=== PATIENT | female | born 1955 | race Caucasian/White ===

== ENCOUNTER → 2018-01-01 | Outpatient (CLI) | payer BC ==
--- NOTE | 2018-01-01 17:36 | CT ---
EXAMINATION TYPE: CT abdomen pelvis wo/w con DATE OF EXAM: 01/01/2018 COMPARISON: 11/30/2015 HISTORY: Patient complains of severe intermittent generalized abdoimnal/pelvic pain. CT DLP: 2066 mGycm Automated exposure control for dose reduction was used. TECHNIQUE: Helical acquisition of images was performed from the lung bases through the pelvis. CONTRAST: Performed with Oral Contrast and with IV Contrast, patient injected with 100 mL of Isovue 300. FINDINGS: Lung bases are clear. There is no pleural effusion. Heart size is normal. Gallbladder appears normal. Spleen appears normal. There is no pancreatic mass. There is no adrenal mass. 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 There is no hydronephr osis. Ureters are not dilated. There are a few sigmoid diverticula. There is no evidence of diverticulitis. Bladder distends smoothl y. There is no pelvic mass. Bony structures appear intact. Uterus is anteverted. There is no free flu id in the pelvis. There is no sign of free air. Appendix is not seen. There is no sign of appendiciti s. There are 1 cm hypodensities in the posterior right lobe of the liver consistent with cysts. IMPRESSION: SMALL HEPATIC CYSTS ARE UNCHANGED COMPARED TO OLD EXAM. NO SIGN OF ACUTE ABDOMEN AND PELVIS. MILD SIG MOID DIVERTICULOSIS WITHOUT EVIDENCE OF DIVERTICULITIS. I DO NOT SEE A CAUSE FOR ABDOMINAL PAIN.
== END | disposition home or self-care (01) ==
LOC: RADCTMAIN 15:17
PROVIDERS: ATTEND Family Medicine
DX: K76.89 Other specified diseases of liver (principal); K57.30 Diverticulosis of large intestine without perforation or abscess without bleeding
CPT/HCPCS: 74178; Q9967

== ENCOUNTER → 2018-01-20 | Outpatient (CLI) | payer BC ==
[2018-01-20 10:32] LABS: Basophils # (A) 0.1 k/uL (0-0.2); Basophils % (A) 1 %; Eosinophils # (A) 0.1 k/uL (0-0.7); Eosinophils % (A) 3 %; HCT 43.4 % (34.0-46.0); HGB 13.8 gm/dL (11.4-16.0); Lymphocytes # (A) 1.1 k/uL (1.0-4.8); Lymphocytes % (A) 24 %; MCHC 31.9 g/dL (31.0-37.0); Mean Platelet Volume 7.1; Monocytes # (A) 0.3 k/uL (0-1.0); Monocytes % (A) 6 %; Neutrophils # (A) 2.9 k/uL (1.3-7.7); Neutrophils % (A) 63 %; Platelet Count 223 k/uL (150-450); RBC 4.62 m/uL (3.80-5.40); RDW 12.9 % (11.5-15.5); WBC 4.6 k/uL (3.8-10.6)
[2018-01-20 10:45] LABS: ALT 34 U/L (9-52); AST 28 U/L (14-36); Albumin 4.1 g/dL (3.5-5.0); Alkaline Phosphatase 61 U/L (38-126); Anion Gap 3 mmol/L; Blood Urea Nitrogen 16 mg/dL (7-17); Calcium 9.5 mg/dL (8.4-10.2); Carbon Dioxide 28 mmol/L (22-30); Chloride 109 mmol/L (98-107); Cholesterol 208 mg/dL (<200); Glucose 92 mg/dL (74-99); HDL Cholesterol 82 mg/dL (40-60); LDL Cholesterol,Calculated 108 mg/dL (0-99); Potassium 5.2 mmol/L (3.5-5.1); Sodium 140 mmol/L (137-145); Total Bilirubin 0.9 mg/dL (0.2-1.3); Total Protein 6.6 g/dL (6.3-8.2); Triglycerides 92 mg/dL (<150)
[2018-01-20 12:13] LABS: T4, Free (Free Thyroxine) 1.02 ng/dL (0.78-2.19)
[2018-01-20 16:50] LABS: Gliadin AB IgA, Unit <0.2 U/mL
[2018-01-20 16:55] LABS: Hepatitis C IgG Antibody Non-Reactive (Non-Reactive)
== END | disposition home or self-care (01) ==
LOC: LABWHC1 09:56
PROVIDERS: ATTEND Family Medicine
DX: Z00.00 Encounter for general adult medical examination without abnormal findings (principal); R53.83 Other fatigue; Z11.59 Encounter for screening for other viral diseases; Z91.018 Allergy to other foods
CPT/HCPCS: 36415; 80053; 80061; 82607; 82785; 83516; 84439; 84443; 84481; 85025; 86803

== ENCOUNTER → 2019-05-26 | Outpatient (CLI) | payer BC ==
[2019-05-26 11:17] LABS: Basophils # (A) 0.1 k/uL (0-0.2); Basophils % (A) 1 %; Eosinophils # (A) 0.1 k/uL (0-0.7); Eosinophils % (A) 2 %; HCT 46.3 % (34.0-46.0); HGB 14.7 gm/dL (11.4-16.0); Lymphocytes # (A) 1.6 k/uL (1.0-4.8); Lymphocytes % (A) 26 %; MCH 30.3 pg (25.0-35.0); MCHC 31.8 g/dL (31.0-37.0); MCV 95.5 fL (80.0-100.0); Mean Platelet Volume 7.3; Monocytes # (A) 0.4 k/uL (0-1.0); Monocytes % (A) 7 %; Neutrophils # (A) 3.9 k/uL (1.3-7.7); Neutrophils % (A) 62 %; Platelet Count 257 k/uL (150-450); RBC 4.85 m/uL (3.80-5.40); RDW 12.5 % (11.5-15.5); WBC 6.3 k/uL (3.8-10.6)
[2019-05-26 20:57] LABS: Albumin 4.4 g/dL (3.80-4.90); Albumin/Globulin Ratio 2.32 (1.60-3.17); Anion Gap 9.2 mmol/L (4.00-12.00); BUN/Creat Ratio 18.75 Ratio (12.00-20.00); Calcium 9.4 mg/dL (8.7-10.3); Carbon Dioxide 24.8 mmol/L (21.6-31.8); Globulin 1.9 g/dL (1.6-3.3); Non-African American GFR(CKD) 76.8 (60.0-200.0); Potassium 4.5 mmol/L (3.5-5.5); Total Bilirubin 1.1 mg/dL (0.3-1.2); Total Protein 6.3 g/dL (6.2-8.2)
[2019-05-26 21:09] LABS: Hemoglobin A1C 5.3 % (4.0-6.0)
== END | disposition home or self-care (01) ==
LOC: LABWHC1 10:39
PROVIDERS: ATTEND Family Medicine
DX: Z00.01 Encounter for general adult medical examination with abnormal findings (principal); Z13.220 Encounter for screening for lipoid disorders; Z13.1 Encounter for screening for diabetes mellitus
CPT/HCPCS: 36415; 80053; 83036; 84443; 85025

== ENCOUNTER → 2019-07-08 | Outpatient (CLI) | payer BC ==
--- NOTE | 2019-07-10 09:27 | MM ---
Reason for exam: screening (asymptomatic). Last mammogram was performed 5 years and 1 month ago. History: Patient is postmenopausal and had first child at age 31. Family history of breast cancer in mother. Took estrogen for 3 months. Took progesterone for 3 months. Physical Findings: A clinical breast exam by your physician is recommended on an annual basis and results should be correlated with mammographic findings. MG 3D Screening Mammo W/Cad Bilateral CC and MLO view(s) were taken. Prior study comparison: June 10, 2014, mammogram, performed at [facility]. There are scattered fibroglandular densities. Lucent centered calcifications grouped in the anterior left breast are stable and benign. No significant changes when compared with prior studies. ASSESSMENT: Negative, BI-RAD 1 RECOMMENDATION: Routine screening mammogram of both breasts in 1 year.
== END | disposition home or self-care (01) ==
LOC: RADMAMWWP 10:46
PROVIDERS: ATTEND Family Medicine
DX: Z12.31 Encounter for screening mammogram for malignant neoplasm of breast (principal)
CPT/HCPCS: 77063; 77067

== ENCOUNTER → 2021-07-19 | Outpatient (CLI) | payer BC, MEDICARE ==
--- NOTE | 2021-07-21 09:22 | MM ---
Reason for exam: screening (asymptomatic). Last mammogram was performed 2 years ago. History: Patient is postmenopausal and had first child at age 31. Family history of breast cancer in mother. Took estrogen for 3 months. Took progesterone for 3 months. Physical Findings: A clinical breast exam by your physician is recommended on an annual basis and results should be correlated with mammographic findings. MG 3D Screening Mammo W/Cad Bilateral CC and MLO view(s) were taken. XCCL view(s) were taken of the right breast. Prior study comparison: July 08, 2019, bilateral MG 3d screening mammo w/cad. June 10, 2014, mammogram, performed at [facility]. There are scattered fibroglandular densities. Finding: There are stable typically benign course grouped/clustered calcifications in the left breast. No significant changes in finding since July 08, 2019 and June 10, 2014. ASSESSMENT: Benign, BI-RAD 2 RECOMMENDATION: Routine screening mammogram of both breasts in 1 year.
== END | disposition home or self-care (01) ==
LOC: RADMAMWWP 15:45
PROVIDERS: ATTEND Family Medicine
DX: Z12.31 Encounter for screening mammogram for malignant neoplasm of breast (principal); Z80.3 Family history of malignant neoplasm of breast; Z78.0 Asymptomatic menopausal state
CPT/HCPCS: 77063; 77067

== ENCOUNTER → 2022-12-18 | Outpatient (CLI) | payer MEDICARE ==
--- NOTE | 2022-12-19 08:42 | MM ---
Reason for Exam: Screening (asymptomatic). Last mammogram was performed 1 year(s) and 5 month(s) ago. Patient History: Menarche at age 11. First Full-Term at age 31. Late child-bearing (after 30). Postmenopausal. Estrogen for 3 months. Progesterone for 3 months. Mother had breast cancer. Risk Values: Alma Rosa 5 year model risk: 3.5%. NCI Lifetime model risk: 10.5%. Prior Study Comparison: 06/10/2014 Screening Mammogram, [facility]. 07/08/2019 Bilateral Screening Mammogram, [facility]. 07/19/2021 Bilateral Screening Mammogram, [facility]. Tissue Density: The breast tissue is heterogeneously dense. This may lower the sensitivity of mammography. Findings: Analyzed By CAD. There is no suspicious group of microcalcifications or new suspicious mass in either breast. Overall Assessment: Negative, BI-RAD 1 Management: Screening Mammogram of both breasts in [address] [facility] will attempt to contact patient to return for supplemental views and ultrasound if indicated. Patient should continue monthly self-breast exams. A clinical breast exam by your physician is recommended on an annual basis. This exam should not preclude additional follow-up of suspicious palpable abnormalities. Note on Alma Rosa scores and lifetime risk: 1. A Alma Rosa score greater than 3% is considered moderate risk. If this is the case, consider specialist referral to assess eligibility for a risk reducing agent. 2. If overall lifetime risk for the development of breast cancer is 20% or higher, the patient may qualify for future screening with alternating mammogram and breast MRI. Electronically signed and approved by: Prince Sue DO
== END | disposition home or self-care (01) ==
LOC: RADMAMWWP 15:54
PROVIDERS: ATTEND Family Medicine
DX: Z12.31 Encounter for screening mammogram for malignant neoplasm of breast (principal); Z78.0 Asymptomatic menopausal state; Z80.3 Family history of malignant neoplasm of breast
CPT/HCPCS: 77063; 77067

== ENCOUNTER → 2022-12-19 | Outpatient (CLI) | payer MEDICARE ==
[2022-12-19 16:09] LABS: HCT 40.3 % (37.2-46.3); HGB 12.5 d/dL (12.0-15.0); MCH 29.1 pg (27.0-32.0); MCV 93.9 FL (80.0-97.0); Mean Platelet Volume 10.6 FL (9.5-12.2); NRBC Per 100 WBC 0 X 10*3/uL (0.00-0.01); Platelet Count 197 X 10*3/uL (140-440); RBC 4.29 X 10*6/uL (4.10-5.20); RDW 13.5 % (11.5-14.5); WBC 11.87 X 10*3/uL (4.50-10.00)
[2022-12-19 17:02] LABS: ALT 96 U/L (8-44); AST 87 U/L (13-35); Albumin 3.6 d/dL (3.8-4.9); Alkaline Phosphatase 135 U/L (41-126); BUN/Creat Ratio 19.25 Ratio (12.00-20.00); Blood Urea Nitrogen 15.4 mg/dL (9.0-27.0); Calcium 9.1 mg/dL (8.7-10.3); Carbon Dioxide 25.9 mmol/L (21.6-31.8); Chloride 105 mmol/L (96-109); Globulin 2.4 d/dL (1.6-3.3); Glucose 93 mg/dL (70-110); LDL Cholesterol,Calculated 89.6 mg/dL (0.0-131.0); Potassium 4.2 mmol/L (3.5-5.5); Sodium 141 mmol/L (135-145); Total Bilirubin 0.5 mg/dL (0.3-1.2)
[2022-12-19 18:30] LABS: Lymphocytes # (M) 5.82 X 10*3/uL (0.90-5.00)
[2022-12-19 19:00] LABS: Basophils # (M) 0.12 X 10*3/uL (0.00-0.10); Eosinophils # (M) 0.36 X 10*3/uL (0.04-0.35); Monocytes # (M) 1.07 X 10*3/uL (0.20-1.00); Neutrophils # (M) 4.51 X 10*3/uL (1.80-7.70); Neutrophils % (M) 38 %
== END | disposition home or self-care (01) ==
LOC: LABWHC1 11:31
PROVIDERS: ATTEND Family Medicine
DX: Z00.01 Encounter for general adult medical examination with abnormal findings (principal); Z13.220 Encounter for screening for lipoid disorders; Z13.1 Encounter for screening for diabetes mellitus; Z13.29 Encounter for screening for other suspected endocrine disorder
CPT/HCPCS: 36415; 80053; 80061; 83036; 84443; 85025

== ENCOUNTER → 2023-02-06 | Outpatient (CLI) | payer MEDICARE ==
--- NOTE | 2023-02-06 15:48 | USB ---
Reason for Exam: Additional evaluation requested from prior study. Patient History: Menarche at age 11. First Full-Term at age 31. Late child-bearing (after 30). Postmenopausal. Estrogen for 3 months. Progesterone for 3 months. Mother had breast cancer. Risk Values: Alma Rosa 5 year model risk: 3.5%. NCI Lifetime model risk: 10.5%. Technique: Method: Whole Breast Handheld. Prior Study Comparison: 07/08/2019 Bilateral Screening Mammogram, [facility]. 07/19/2021 Bilateral Screening Mammogram, [facility]. 12/18/2022 Bilateral MG 3D screening mammo w/cad, [facility]. Findings: The whole breast of both breasts, the axilla of both breasts and the retroareolar of both breasts were scanned. No solid or cystic masses are identified.. Overall Assessment: Benign, BI-RAD 2 Management: Screening Mammogram of both breasts in 10 months. A clinical breast exam by your physician is recommended on an annual basis and results should be correlated with mammographic findings. This exam should not preclude additional follow-up of suspicious palpable abnormalities. Results were given to the patient verbally at the time of exam. Electronically signed and approved by: Volodymyr Langley D.O. Radiologis
== END | disposition home or self-care (01) ==
LOC: RADUSWWP 14:00
PROVIDERS: ATTEND Family Medicine
DX: R92.2 Inconclusive mammogram (principal); Z78.0 Asymptomatic menopausal state; Z80.3 Family history of malignant neoplasm of breast

== ENCOUNTER → 2023-02-19 | Outpatient (CLI) | payer MEDICARE ==
--- NOTE | 2023-02-19 07:50 | US ---
EXAMINATION TYPE: US liver DATE OF EXAM: 02/19/2023 COMPARISON: 01/01/2018 CLINICAL INDICATION: Female, 67 years old with history of R74.01 ELEVATION OF LEVELS OF LIVER TRANSAM INASE L; elevated LFTs TECHNIQUE: Multiple sonographic images of the right upper quadrant are obtained. 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 Two approaches used. H epatic cysts from prior CT not visualized, one hyperechoic area noted in rt lobe: 1.3x1.0x1.2cm Gallbladder: wnl, prominent size Evidence for sonographic Donovan's sign: No CBD: wnl Right Kidney: wnl, horseshoe kidney, inferior pole slightly obscured by bowel exam slightly limited by bowel gas, and rib shadowing IMPRESSION: 1. Horseshoe kidney. 2. Probable hemangioma posterior segment right hepatic lobe.
== END | disposition home or self-care (01) ==
LOC: RADUSWWP 06:47
PROVIDERS: ATTEND Family Medicine
DX: Q63.1 Lobulated, fused and horseshoe kidney (principal); R74.01 Elevation of levels of liver transaminase levels
CPT/HCPCS: 76705

== ENCOUNTER → 2023-02-21 | Outpatient (CLI) | payer MEDICARE ==
[2023-02-21 13:23] LABS: Basophils # (A) 0.05 X 10*3/uL (0.00-0.10); Basophils % (A) 1.1 %; Eosinophils % (A) 2.1 %; HCT 41.8 % (37.2-46.3); HGB 13.5 d/dL (12.0-15.0); Lymphocytes # (A) 2.21 X 10*3/uL (0.90-5.00); Lymphocytes % (A) 46.7 %; MCH 30.8 pg (27.0-32.0); MCHC 32.3 d/dL (32.0-37.0); MCV 95.2 FL (80.0-97.0); Mean Platelet Volume 10.2 FL (9.5-12.2); Monocytes # (A) 0.48 X 10*3/uL (0.20-1.00); Monocytes % (A) 10.1 %; NRBC Per 100 WBC 0 X 10*3/uL (0.00-0.01); Neutrophils # (A) 1.88 X 10*3/uL (1.80-7.70); Neutrophils % (A) 39.8 %; Platelet Count 241 X 10*3/uL (140-440); RBC 4.39 X 10*6/uL (4.10-5.20); RDW 13.8 % (11.5-14.5); WBC 4.73 X 10*3/uL (4.50-10.00)
[2023-02-21 13:34] LABS: ALT 33 U/L (8-44); AST 30 U/L (13-35); Albumin 4.4 d/dL (3.8-4.9); Alkaline Phosphatase 78 U/L (41-126); Amylase 31 U/L (23-121); BUN/Creat Ratio 19.14 Ratio (12.00-20.00); Blood Urea Nitrogen 13.4 mg/dL (9.0-27.0); Calcium 9.8 mg/dL (8.7-10.3); Carbon Dioxide 27.3 mmol/L (21.6-31.8); Chloride 105 mmol/L (96-109); Globulin 2.1 d/dL (1.6-3.3); Glucose 86 mg/dL (70-110); Lipase 20 U/L (14-63); Potassium 5.1 mmol/L (3.5-5.5); Sodium 140 mmol/L (135-145); Total Bilirubin 0.8 mg/dL (0.3-1.2); Total Protein 6.5 d/dL (6.2-8.2)
[2023-02-21 13:44] LABS: Hepatitis A Antibody IgM Nonreactive; Hepatitis B Core IgM Nonreactive; Hepatitis B Surface Antigen Nonreactive; Hepatitis C IgG Antibody Nonreactive
== END | disposition home or self-care (01) ==
LOC: LABWHC1 08:54
PROVIDERS: ATTEND Family Medicine
DX: R74.01 Elevation of levels of liver transaminase levels (principal)
CPT/HCPCS: 36415; 80053; 80074; 82150; 83690; 85025

== ENCOUNTER → 2024-03-06 | Outpatient (CLI) | payer MEDICARE ==
--- NOTE | 2024-03-10 11:00 | MM ---
Reason for Exam: Screening (asymptomatic). Last mammogram was performed 1 year(s) and 3 month(s) ago. Patient History: Menarche at age 11. First Full-Term at age 31. Late child-bearing (after 30). Postmenopausal. Estrogen for 3 months. Progesterone for 3 months. Mother had breast cancer. Risk Values: Alma Rosa 5 year model risk: 3.5%. NCI Lifetime model risk: 10.0%. Prior Study Comparison: 07/08/2019 Bilateral Screening Mammogram, [facility]. 07/19/2021 Bilateral Screening Mammogram, [facility]. 12/18/2022 Bilateral MG 3D screening mammo w/cad, [facility]. Tissue Density: There are scattered areas of fibroglandular density. Findings: Analyzed By CAD. Right breast: There is no suspicious group of microcalcifications or new suspicious mass. Left breast: There is no suspicious group of microcalcifications or new suspicious mass. Overall Assessment: Negative, BI-RAD 1 Management: Screening Mammogram of both breasts in [address] [facility] will attempt to contact patient to return for supplemental views and ultrasound if indicated. Patient should continue monthly self-breast exams. A clinical breast exam by your physician is recommended on an annual basis. This exam should not preclude additional follow-up of suspicious palpable abnormalities. Note on Alma Rosa scores and lifetime risk: 1. A Alma Rosa score greater than 3% is considered moderate risk. If this is the case, consider specialist referral to assess eligibility for a risk reducing agent. 2. If overall lifetime risk for the development of breast cancer is 20% or higher, the patient may qualify for future screening with alternating mammogram and breast MRI. [facility], , 03/10/2024 10:57 AM. Electronically signed and approved by: Prince Sue DO
== END | disposition home or self-care (01) ==
LOC: RADMAMWWP 14:11
PROVIDERS: ATTEND Family Medicine
CPT/HCPCS: 77063; 77067

== ENCOUNTER → 2024-03-13 | Outpatient (CLI) | payer MEDICARE ==
[2024-03-13 15:02] LABS: Basophils # (A) 0.04 X 10*3/uL (0.00-0.10); Basophils % (A) 0.7 %; Eosinophils % (A) 1.8 %; HCT 40.4 % (37.2-46.3); Lymphocytes # (A) 2.02 X 10*3/uL (0.90-5.00); Lymphocytes % (A) 35.9 %; MCH 30.8 pg (27.0-32.0); MCHC 32.2 g/dL (32.0-37.0); MCV 95.7 FL (80.0-97.0); Mean Platelet Volume 10.9 FL (9.5-12.2); Monocytes # (A) 0.52 X 10*3/uL (0.20-1.00); Monocytes % (A) 9.2 %; NRBC Per 100 WBC 0 X 10*3/uL (0.00-0.01); Neutrophils # (A) 2.94 X 10*3/uL (1.80-7.70); Neutrophils % (A) 52.2 %; Platelet Count 209 X 10*3/uL (140-440); RBC 4.22 X 10*6/uL (4.10-5.20); RDW 12.8 % (11.5-14.5); WBC 5.63 X 10*3/uL (4.50-10.00)
[2024-03-13 20:15] LABS: ALT 15 U/L (8-44); AST 20 U/L (13-35); Albumin 4.2 g/dL (3.8-4.9); Alkaline Phosphatase 55 U/L (41-126); Blood Urea Nitrogen 13.5 mg/dL (9.0-27.0); Calcium 9.7 mg/dL (8.7-10.3); Carbon Dioxide 25.2 mmol/L (21.6-31.8); Chloride 107 mmol/L (96-109); Chol/HDL Ratio 2.99 Ratio; Globulin 2.1 g/dL (1.6-3.3); Glucose 76 mg/dL (70-110); LDL Cholesterol,Calculated 107.4 mg/dL (0.0-131.0); Potassium 4.5 mmol/L (3.5-5.5); Sodium 142 mmol/L (135-145); Total Bilirubin 0.6 mg/dL (0.3-1.2); Total Protein 6.3 g/dL (6.2-8.2)
== END | disposition home or self-care (01) ==
LOC: LABWHC1 10:21
PROVIDERS: ATTEND Family Medicine
DX: Z00.01 Encounter for general adult medical examination with abnormal findings (principal); Z13.220 Encounter for screening for lipoid disorders; Z13.1 Encounter for screening for diabetes mellitus; Z13.29 Encounter for screening for other suspected endocrine disorder
CPT/HCPCS: 36415; 80053; 80061; 83036; 84443; 85025

== ENCOUNTER → 2024-09-17 | Outpatient (CLI) | payer MEDICARE ==
[2024-09-17 14:26] VITALS: BP 138/71; PULSE 92; RESP 17; TEMP 98.2
--- NOTE | 2024-09-17 15:00 | P.GSCN ---
History of Present Illness Consult date: 09/17/24 Reason for Consult: breast mass Requesting physician: Hakeem Easley History of present illness: Remedios is a 69 year old female with a complaint of a right breast lump in February, and was bulging above the surface. She took antibiotics for two weeks and it was gone. A few months later it recurred, about April it recurred. This occured after the mammogram. She had a bilateral mammogram on 03-06-24 BIRAD 1. She had a bilateral breast ultrasound on 02-06-23 BIRAD 2. At this time she feels a small smooth/palpable in the right breast in the lower inner quadrant area. No other lumps masses or nodules of concern in either breast. She is not complaining of any fever or chills. Caffeine:2 cups/day nicotine: never smoker chocolate: occasional BCP: none hormone: used for several months at menopause Family History: mother: breast cancer at 57 Hormonal History: menarche: 12 , age at : 31, breast fed: yes menopause: 48 Surgical History: tonsillectomy RLQ leaking appendix, exploratory surgery abcess appendix took terminal ileum to hepatic flexure, 22 years ago bowel obstruction Medical History: chronic abdominal pain; migraines back pain rxn airway disease Social History: nicotine: none alcohol: glass red wine at night in the past stopped 3 years ago drugs: none Review of Systems - Constitutional Denies fever, Denies weight loss - EENT Eyes: denies blurred vision Ears: left: tinnitus, deny: decreased hearing Ears, nose, mouth and throat: Denies dysphagia - Breasts bilateral: as per HPI - Cardiovascular Reports shortness of breath, Denies chest pain - Respiratory Reports as per HPI - Gastrointestinal Reports as per HPI - Genitourinary Genitourinary: Denies dysuria, Denies hematuria Menstruation: Reports postmenopausal - Musculoskeletal Musculoskeleta Comment(s): back pain - Integumentary Denies rash, Denies unusual bruising - Neurological Reports headaches, Denies syncope - Psychiatric Reports as per HPI - Endocrine Reports as per HPI - Hematologic/Lymphatic Reports easy bruising, Denies easy bleeding - Allergic/Immunologic Reports as per HPI Surgical - Exam - General no distress - Eyes normal ocular movement - Neck trachea midline - Respiratory normal respiratory effort, clear to auscultation - Cardiovascular Rhythm: regular Heart Sounds: normal: S1, S2 - Abdomen Abdomen: soft, non tender, no guarding, no rigid, no rebound - Integumentary normal turgor - Neurologic no disoriented, no combative - Musculoskeletal normal gait, normal posture - Psychiatric oriented to time, oriented to person, oriented to place, speech is normal, memory intact Breast Exam: BRA: 38C Inspection: Bilateral grade 2 ptosis Palpation: Right breast: Multi positional exam fibrocystic changes, in the lower inner quadrant there is a probable sebaceous cyst it is approximately 8 mm in size Right axilla: No adenopathy of concern Left breast: Multi positional exam fibrocystic changes no dominant masses or nodules of concern Left axilla: No adenopathy of concern Results Impression: Bilateral mammogram March 06, 2024 BI-RADS 1 Palpable nodule right breast lower inner quadrant consistent with sebaceous cyst Plan: Excision palpable mass right breast Risk and benefits of procedure discussed with the patient. Risk include but are not limited to bleeding, infection, reaction to the anesthetic. There is a risk that the area could become infected, or that it could recur. The patient understands and wishes to proceed. Consent: I have discussed the risks, benefits and alternative therapies for the above-mentioned procedure and for both sedation/analgesia as well as necessary blood product administration, if indicated, as they pertain to this patient. The patient has indicated understanding and acceptance of the risks and procedures discussed.
== END ==
LOC: WWCWWP 13:44
PROVIDERS: ATTEND Surgery
DX: N63.14 Unspecified lump in the right breast, lower inner quadrant (principal)